=== PATIENT | male | born 1990 | race Caucasian/White ===

== ENCOUNTER 2021-06-13 22:51 | Emergency (ER) | payer MEDICAID ==
[~2021-06-13] VITALS: Ht 167.6 cm; Wt 117.9 kg
--- NOTE | 2021-06-13 23:00 | NUR ---
PATIENT BIB FAMILY WITH C/O R FOOT PAIN S/P DROPPED TOOL BOX ON IT YESTERDAY. 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 PT AAO X 4, BREATHING EVEN AND UNLABORED. PT WAS SEEN AND EXAMINED BY DR STEWART. WILL CONTINUE TO MONITOR AND CARRY OUT MD WINKLER.
--- NOTE | 2021-06-13 23:55 | NUR ---
DR STEWART AT BEDSIDE
--- NOTE | 2021-06-14 00:05 | NUR ---
Patient discharged to home in stable condition. Written and verbal after care instructions given. Patient verbalizes understanding of instruction. Patient ambulatory with a steady gait.
[2021-06-14 00:08] VITALS: BP 132/80
== END 2021-06-14 00:09 | disposition home or self-care (01) ==
LOC: ER 22:51
DX: S90.31XA Contusion of right foot, initial encounter (principal); W20.8XXA Other cause of strike by thrown, projected or falling object, initial encounter; Y93.89 Activity, other specified; Y92.89 Other specified places as the place of occurrence of the external cause; Y99.8 Other external cause status
CPT/HCPCS: 73630-TC